=== PATIENT | female | born 1955 | race Two or more races ===

== ENCOUNTER 2023-07-14 09:13 | Outpatient (CLI) | payer MEDICARE | END 2023-07-14 23:59 | disposition home or self-care (01) | LOC: MSC 09:13 | PROVIDERS: ATTEND Internal Medicine | DX: M54.2 Cervicalgia (principal); M84.38XA Stress fracture, other site, initial encounter for fracture; V89.2XXA Person injured in unspecified motor-vehicle accident, traffic, initial encounter; J42 Unspecified chronic bronchitis; E78.5 Hyperlipidemia, unspecified; E78.1 Pure hyperglyceridemia ==